=== PATIENT | female | born 1995 | race Two or more races ===

== ENCOUNTER 2024-04-02 15:41 | Emergency (ER) | payer OTHER ==
[2024-04-02 15:48] VITALS: TEMP 98.4; BMI 35.9
[2024-04-02] MEDS ORDERED: METOCLOPRAMIDE HCL 10 MG TABLET (FP) PO ONE (16:33)
[2024-04-02] MEDS ORDERED: ACETAMINOPHEN 325 MG TABLET (FP) ONE (16:33)
[2024-04-02] MEDS: METOCLOPRAMIDE HCL 10 MG TABLET (FP) PO ONE (16:47)
[2024-04-02] MEDS: ACETAMINOPHEN 325 MG TABLET (FP) PO ONE (16:47)
[2024-04-02 16:57] LABS: BASO % 0.6 % (0-2.0); EOS % 0.3 % (0-4.5); HEMATOCRIT 43.2 % (32.4-45.2); HEMOGLOBIN 14.6 GM/dL (10.7-15.3); LYMPH % 23.7 % (8-40); MCH 29.7 pg (25.7-33.7); MCHC 33.7 g/dl (32.0-36.0); MEAN PLT VOLUME 8.5 fl (7.5-11.1); MONO % 5.2 % (3.8-10.2); NEUT % 70.2 % (42.8-82.8); PLATELET COUNT 273 10^3/uL (134-434); RBC 4.91 M/mm3 (3.60-5.2); RDW 13.7 % (11.6-15.6)
[2024-04-02 17:16] LABS: CHLORIDE 106 mmol/L (98-107); POTASSIUM 3.9 mmol/L (3.5-5.1); SODIUM 137 mmol/L (136-145)
[2024-04-02 17:18] LABS: CALCIUM 9.4 mg/dL (8.5-10.1)
[2024-04-02] MEDS ORDERED: IBUPROFEN 400 MG TABLET (FP) PO ONE (17:18)
[2024-04-02 17:19] LABS: ALBUMIN 4.3 g/dl (3.4-5.0); ANION GAP 7 mmol/L (4-13); BLOOD UREA NITROGEN 9.2 mg/dL (7-18); CO2 24 mmol/L (21-32); GLUCOSE,RANDOM 82 mg/dL (74-106)
[2024-04-02 17:22] LABS: CREATININE 0.8 mg/dL (0.55-1.3); SGOT/AST 31 U/L (15-37); SGPT/ALT 26 U/L (13-61)
[2024-04-02 17:23] LABS: TOT PROT 8.3 g/dl (6.4-8.2)
[2024-04-02 17:25] LABS: BILIRUBIN,TOTAL 0.6 mg/dL (0.2-1)
[2024-04-02 17:26] LABS: ALK PHOS 87 U/L (45-117)
[2024-04-02] MEDS: IBUPROFEN 600 MG TABLET (FP) PO ONE (17:26)
[2024-04-02 18:10] VITALS: BP 134/75; PULSE 85; RESP 17
[2024-04-02 18:11] LABS: ERYTHROCYTE SEDIMENTATION RATE 37 mm/hr (0-20)
[2024-04-02 18:20] LABS: HIV INTERPRETATION NEGATIVE (NEGATIVE)
== END 2024-04-02 18:10 | disposition home or self-care (01) ==
LOC: JER 15:41
DX: R51.9 Headache, unspecified (principal); H57.12 Ocular pain, left eye; R25.3 Fasciculation
CPT/HCPCS: 36415; 80053; 85025; 85651; 86140; 86803; 87389; 99283-25